=== PATIENT | male | born 1990 | race Caucasian/White ===

== ENCOUNTER 2018-11-04 15:34 | Emergency (ER) | payer OTHER, SELFPAY ==
[2018-11-04 15:35] VITALS: BP 170/94; PULSE 83; RESP 14; TEMP 36.6; O2SAT 100; BMI 25.7
--- NOTE | 2018-11-04 16:00 | EKG12_ITS ---
Test Reason : REPEAT EKG Blood Pressure : / mmHG Vent. Rate : 100 BPM Atrial Rate : 100 BPM P-R Int : 154 ms QRS Dur : 102 ms QT Int : 348 ms P-R-T Axes : 067 058 045 degrees QTc Int : 448 ms Normal sinus rhythm Incomplete right bundle branch block Borderline ECG Confirmed by ABDULAZIZ DO, JESICA ([id number]), makeup editor JEAN CARLOS SHAH ([id number]) on 11/05/2018 4:07:46 PM Referred By: HANNA Confirmed By:JESICA CINTRON MD
--- NOTE | 2018-11-04 16:00 | RAD_ITS ---
STUDY: X-RAY CHEST REASON FOR EXAM: Male, 27 years old. Chest pain, tachycardia. TECHNIQUE: Portable chest. COMPARISON: None. FINDINGS: The lungs are clear and expanded. There is no demonstrated pleural abnormality. Normal size heart. Normal mediastinum and patricia. Normal visualized pulmonary arteries. Normal visualized aortic arch and descending thoracic aorta. Normal visualized thoracic spine. Normal visualized ribs, clavicles, and shoulders. There is no demonstrated abnormality of the visualized soft tissue structures of the upper abdomen. RAD/Chest 1 View (Portable) IMPRESSION: Normal x-ray examination of the chest. Electronically Signed: Lise Kwan MD at 16:34 EDT Tel , Service support ,
[2018-11-04 16:08] LABS: Absolute Lymphocyte Count 1.75 X10^3/ul (0.83-4.51); Absolute Neutrophil Count 3.7 X10^3/uL (2.0-7.7); Basophil# 0.05 X10^3/uL; Basophil% 0.8 % (0-1); Eosinophil# 0.13 X10^3/uL; Eosinophils% 2.1 % (0-5); Hematocrit 41.6 % (40-54); Hemoglobin 14.2 g/dl (13.0-16.5); Lymphocyte # 1.75 X10^3/ul (4.0); Lymphocyte % 28.6 % (19-41); Mean Corp Hgb Conc 34.1 g/gl (32-36); Mean Corpuscular Hgb 28.7 pg (27.0-32.0); Monocyte# 0.44 X10^3/uL; Monocyte% 7.2 % (0-10); Neutrophil # 3.74 X10^3/uL (2.7-7.7); Neutrophil % 61.1 % (47-70); POSITIVE COUNT NO; POSITIVE DIFFERENTIAL NO; POSITIVE MORPHOLOGY NO; Platelet Count 236 K/mm3 (150-450); RBC Distribution Width CV 12.8 % (11.6-14.6); RBC Distribution Width SD 38.5 fl (35.1-43.9); Red Blood Count 4.95 M/mm3 (4.6-6.2); White Blood Count 6.1 K/mm3 (4.4-11.0)
[2018-11-04 16:17] LABS: D-Dimer Quantitative (DVT/PE) 0.27 FEU/ug/m (0.27-0.49)
[2018-11-04 16:27] LABS: Anion Gap 4 (5-15); BUN 12 mg/dL (7-18); BUN/Creat Ratio 12.4 RATIO (10-20); Calcium,Total 8.5 mg/dL (8.5-10.1); Chloride 106 mmol/L (98-107); Creatinine, Serum 0.97 mg/dL (0.70-1.30); EST Glomerular Filtration Rate 99 mL/min (>60); Est Glom Filt Rate - Afr Amer 119 mL/min (>60); Glucose 106 mg/dL (74-106); Magnesium 1.8 mg/dL (1.6-2.6); Potassium 3.5 mmol/L (3.5-5.1); Sodium Level 138 mmol/L (136-145); Thyroid Stim Hormone (TSH) 1.77 uIU/mL (0.358-3.74)
--- NOTE | 2018-11-04 16:36 | EKG12_ITS ---
Test Reason : CP Blood Pressure : / mmHG Vent. Rate : 089 BPM Atrial Rate : 089 BPM P-R Int : 160 ms QRS Dur : 116 ms QT Int : 346 ms P-R-T Axes : 066 035 049 degrees QTc Int : 420 ms Normal sinus rhythm with sinus arrhythmia Normal ECG Confirmed by ABDULAZIZ DO, JESICA ([id number]), managing editor JEAN CARLOS SHAH ([id number]) on 11/05/2018 4:08:01 PM Referred By: PC Confirmed By:JESICA CINTRON MD
[2018-11-04] MEDS: 0.9% Normal Saline 1,000 ML 150 ML IV (16:41)
[2018-11-04 16:42] VITALS: BP 165/93; PULSE 93; RESP 16; O2SAT 100
--- NOTE | 2018-11-04 16:51 | ED.VISSUMM ---
- ER Visit Summary Date of Service: 11/04/18 Chief Complaint: [Tachycardia and syncope] History of Present Illness: The patient is a 27 M [presents to the emergency department with an episode while golfing today around 3 PM. Patient states that he was walking while pulling a golf bag on a cart when he started feeling dizzy and vision kind of felt off. Patient teed off and went up to the green where he felt like his heart was racing so he laid down on the green and everything kind of went black and he thinks he may have passed out for a short time. Patient was golfing with his boss who ran back to the [employer] to get his car and call patient's . On arrival to the emergency department patient has no complaints. Patient states that he did have some sharp stabbing discomfort in his chest that was intermittent and lasted about a second or 2. Patient had an illness about 2 weeks ago where he had an upper respiratory illness. Patient states that he does not aware of any family history of sudden cardiac or heart rhythm abnormalities. Patient also states that his mother is adopted and he does not know her family history. Patient has a history of anxiety but states the symptoms were very different than the anxiety he used to have. Patient has traveled over the last couple of months by car to [place] [facility]. He denies any swelling in the legs out of the ordinary. He does not have any history of PE or DVT.] Physical Examination: [HEENT-PERRLA, EOMI. Cranial nerves II through XII grossly intact. TMs clear. Mucous membranes moist. No adenopathy. Cardiovascular-regular rate and rhythm without murmur or ectopy Lungs-clear to auscultation, chest wall stable without crepitus or subcu emphysema Abdomen-normoactive bowel sounds, soft, nontender, no rebound or rigidity, no peritoneal signs. Extremities-intact ?4, normal range of motion, normal pulses, atraumatic] Test Results: [EKG obtained on arrival showed a sinus rhythm with a ventricular rate of 89 bpm with no acute I segment changes. No abnormality to suggest WPW. CBC with differential is normal. Chemistries were normal. Magnesium was normal at 1.8. D-dimer was normal 0.27. Troponin was less than 0.015. TSH was normal at 1.77. Chest x-ray was normal.] Emergency Department Course and Treatment: [Patient case was discussed with cardiology on-call Dr. Lemuel Bermeo who recommended a 30-day event monitor. Patient to follow-up with his office.] Treatment Plan: 30-day event monitor and follow-up with cardiology. Patient advised to return if recurring symptoms. [Patient understands it is unclear the etiology of his tachycardia at this point. Patient understands he needs to return if he should have recurrent tachycardia or syncope.] Disposition: [Discharged home in stable condition] Impression: [Tachycardia Syncope-allergy uncertain] This note was generated with [employer] software. It may contain incorrect words, spelling, and punctuation that were not noted in review of the chart prior to signing ED Disposition - Plan for ED Patient: Referrals: Care Physician,No Primary [Primary Care Provider] -
--- NOTE | 2018-11-04 16:56 | ED.DCSUM_ITS ---
- ER Visit Summary Date of Service: 11/04/18 Chief Complaint: [Tachycardia and syncope] History of Present Illness: The patient is a 27 M [presents to the emergency department with an episode while golfing today around 3 PM. Patient states that he was walking while pulling a golf bag on a cart when he started feeling dizzy and vision kind of felt off. Patient teed off and went up to the green where he felt like his heart was racing so he laid down on the green and everything kind of went black and he thinks he may have passed out for a short time. Patient was golfing with his boss who ran back to the [employer] to get his car and call patient's . On arrival to the emergency department patient has no complaints. Patient states that he did have some sharp stabbing discomfort in his chest that was intermittent and lasted about a second or 2. Patient had an illness about 2 weeks ago where he had an upper respiratory illness. Patient states that he does not aware of any family history of sudden cardiac or heart rhythm abnormalities. Patient also states that his mother is adopted and he does not know her family history. Patient has a history of anxiety but states the symptoms were very different than the anxiety he used to have. Patient has traveled over the last couple of months by car to [place] and out of [facility] multiple times. He denies any swelling in the legs out of the ordinary. He does not have any history of PE or DVT.] Physical Examination: [HEENT-PERRLA, EOMI. Cranial nerves II through XII grossly intact. TMs clear. Mucous membranes moist. No adenopathy. Cardiovascular-regular rate and rhythm without murmur or ectopy Lungs-clear to auscultation, chest wall stable without crepitus or subcu emphysema Abdomen-normoactive bowel sounds, soft, nontender, no rebound or rigidity, no peritoneal signs. Extremities-intact ?4, normal range of motion, normal pulses, atraumatic] Test Results: [EKG obtained on arrival showed a sinus rhythm with a ventricular rate of 89 bpm with no acute I segment changes. No abnormality to suggest WPW. CBC with differential is normal. Chemistries were normal. Magnesium was normal at 1.8. D-dimer was normal 0.27. Troponin was less than 0.015. TSH was normal at 1.77. Chest x-ray was normal.] Emergency Department Course and Treatment: [Patient case was discussed with cardiology on-call Dr. Lemuel Bermeo who recommended a 30-day event monitor. Patient to follow-up with his office.] Treatment Plan: 30-day event monitor and follow-up with cardiology. Patient advised to return if recurring symptoms. [Patient understands it is unclear the etiology of his tachycardia at this point. Patient understands he needs to return if he should have recurrent tachycardia or syncope.] Disposition: [Discharged home in stable condition] Impression: [Tachycardia Syncope-allergy uncertain] This note was generated with [employer] software. It may contain incorrect words, spelling, and punctuation that were not noted in review of the chart prior to signing ED Disposition - Plan for ED Patient: Referrals: Care Physician,No Primary [Primary Care Provider] -
--- NOTE | 2018-11-04 16:56 | ED.DEP ---
ED Disposition - Plan for ED Patient: Instructions: ED Dizziness UKO, ED Fainting Unkn Cause, ED Palpitations Referrals: Care Physician,No Primary [Primary Care Provider] - Lemuel Bermeo MD [STAFF PHYSICIAN] - Additional Instructions: come to hospital tomorrow to obtain your 30 day event monitor avoid exertional activity
[2018-11-04 17:07] VITALS: BP 144/89; PULSE 85; RESP 16; TEMP 36.6; O2SAT 100
--- NOTE | 2018-11-04 17:09 | ED.RN ---
insteuctions and rx for 30 day event monitor. given verbalizes understanding
== END 2018-11-04 17:09 | disposition home or self-care (01) ==
PROVIDERS: Emergency Provider Emergency Medicine
DX: R00.0 Tachycardia, unspecified (principal); R55 Syncope and collapse
CPT/HCPCS: 71045; 80048; 83735; 84443; 84484; 85025; 85379; 93005; 96360; 99284

== ENCOUNTER → 2018-12-11 09:08 | Outpatient (CLI) | payer OTHER, SELFPAY ==
[2018-11-20 09:57] VITALS: BMI 25.1
--- NOTE | 2018-12-11 09:10 | ECHOCS_ITS ---
Reason For Study: Syncope Procedure This was a 2D Doppler, Color Flow transthoracic echocardiogram. Exam performed in department. Left Ventricle Normal size and thickness. The estimated ejection fraction is 65 %. Normal diastology for age. No regional wall motion abnormalities noted. Right Ventricle Normal size and thickness. Normal systolic function. Atria Normal left atrium. Normal right atrium. Normal atrial septum. Mitral Valve The mitral valve is structurally normal. No prolapse or stenosis seen. Trivial mitral valve insufficiency. Tricuspid Valve Normal tricuspid valve. Trivial tricuspid valve insufficiency. Unable to estimate RV systolic pressure/pulmonary artery pressure due to technically difficult study. Aortic Valve Normal aortic valve. Trisinus/trileaflet aortic valve. Pulmonic Valve Normal pulmonic valve. Trivial pulmonic valve insufficiency. Great Vessels Normal aortic root. Normal arch. Normal inferior vena cava. Inferior vena cava collapse with sniff. Pericardium/Pleural No pericardial effusion. Medication 22 gauge I.V. with prn adaptor inserted into right arm. Diluted definity 1ml given slow IV push to enhance endocardial definition. MMode/2D Measurements & Calculations LVIDd: 5.2 cm IVSd: 1.1 cm LA dimension: 3.0 cm LVIDs: 3.6 cm LVPWd: 1.3 cm RVDd: 3.6 cm FS: 30.8 % LAV(MOD-sp4): 50.2 ml LVAd ap4: 36.5 cm2 SV(MOD-sp4): 65.5 ml EDV(MOD-sp4): 124.8 ml EDV(sp4-el): 129.8 ml LVAs ap4: 23.0 cm2 ESV(MOD-sp4): 59.3 ml ESV(sp4-el): 60.8 ml EF(MOD-sp4): 52.5 % EF(sp4-el): 53.2 % SV(sp4-el): 69.1 ml LA A4 area: 19.2 cm2 RA A4 area: 17.0 cm2 Time Measurements MV dec time: 0.18 sec Doppler Measurements & Calculations MV E max rolf: 83.8 cm/sec Lat Peak E' Rolf: 18.9 cm/sec Med Peak E' Rolf: 14.1 cm/sec MV A max rolf: 51.3 cm/sec E/E' lat: 4.4 E/E' med: 5.9 MV E/A: 1.6 MV V2 max: 85.7 cm/sec MV P1/2t max rolf: 85.7 cm/sec Ao V2 max: 108.7 cm/sec MV max P.9 mmHg MV P1/2t: 52.2 msec Ao max P.7 mmHg MV V2 mean: 44.9 cm/sec Ao V2 mean: 74.8 cm/sec MV mean P.97 mmHg MV dec slope: 481.1 cm/sec2 Ao mean P.5 mmHg MV V2 VTI: 28.5 cm MVA(P1/2t): 4.2 cm2 Ao V2 VTI: 21.0 cm LV V1 max: 85.7 cm/sec PA V2 max: 79.9 cm/sec LV V1 max P.9 mmHg LV V1 mean P.5 mmHg LV V1 mean: 56.4 cm/sec LV V1 VTI: 17.4 cm Interpretation Summary The estimated ejection fraction is 65 %. Normal diastology for age. Trivial mitral valve insufficiency. Trivial tricuspid valve insufficiency. Unable to estimate RV systolic pressure/pulmonary artery pressure due to technically difficult study. The study was technically difficult. There is no comparison study available. Contrast injection was performed. Ordering Physician: Lemuel Bermeo Referring Physician: Lemuel Bermeo Performed By: Vasiliy Jolly RCS
== END ==
PROVIDERS: Referring Provider Internal Medicine Cardiovascular Disease; Visit Provider Internal Medicine Cardiovascular Disease
DX: R55 Syncope and collapse (principal); R00.0 Tachycardia, unspecified
CPT/HCPCS: 93306; Q9957; A4216; C8929

== ENCOUNTER → 2018-12-13 | Outpatient (CLI) | payer OTHER, SELFPAY ==
[2018-11-20 09:57] VITALS: BMI 25.1
--- NOTE | 2018-12-13 09:25 | STE_ITS ---
Reason For Study: Syncope Stress Results Protocol: Osmani Protocol Maximum Predicted HR: 192 bpm Target HR: 163 bpm % Maximum Predicted HR: 101 % DurationHeart Rate Stage (mm:ss) (bpm) BP Comment Baseline 71 140/88No Chest Pain Osmani Protocol Stage I 3:00 111 130/78No Chest Pain Osmani Protocol Stage II 3:00 133 148/86No Chest Pain Osmani Protocol Stage III 3:00 166 160/78No Chest Pain; Mild Dyspnea Osmani Protocol Stage IV 1:30 193 178/80No Chest Pain; Mild to Moderate Dyspnea Recovery 114 130/70No Chest Pain Stress Duration: 10:30 mm:ss Maximum Stress HR: 193 bpm METS: 13 Baseline Echocardiogram Findings The estimated ejection fraction is 65 %. Stress Echo Wall motion Data Resting WM Intermediate WM Stress WM Resting Wall Motion Wall Motion Stress No regional wall motion No regional wall motion abnormalities noted. abnormalities noted. EKG Data Normal intervals are noted. The patient exercised according to the regular Osmani protocol for a total duration of 10:30. The maximum heart rate attained was 193 beats per minute. This was 100% of maximum predicted heart rate. The patient exercised into stage 4 of the Osmani protocol. During stress, there were no ST or T wave changes noted to suggest ischemia. No clinical angina was noted. Interpretation Summary The estimated ejection fraction is 65 %. Normal, adequate, treadmill echocardiogram. Negative for ischemia by EKG and echocardiographic criteria. No anginal symptoms noted. Rare PVC noted. Average exercise capacity for age. Appropriate blood pressure response to exercise. Test terminated due to dyspnea. Final LVEF of 75%. No complications. Ordering Physician: Lemuel Bermeo Referring Physician: No Primary Care Doctor Performed By: Kelly Powers RDCS
== END | disposition home or self-care (01) ==
PROVIDERS: Referring Provider Internal Medicine Cardiovascular Disease; Visit Provider Internal Medicine Cardiovascular Disease
DX: R55 Syncope and collapse (principal); R00.0 Tachycardia, unspecified
CPT/HCPCS: 93017; 93350

== ENCOUNTER → 2019-10-03 09:29 | Outpatient (CLI) | payer OTHER, SELFPAY ==
[2019-06-03 15:33] VITALS: BMI 25.2
[2019-10-03 10:09] LABS: Absolute Lymphocyte Count 1.98 X10^3/uL (0.83-4.51); Absolute Neutrophil Count 2.2 X10^3/uL (2.0-7.7); Basophil# 0.05 X10^3/uL; Basophil% 1.1 % (0-1); Eosinophils% 2.1 % (0-5); Hematocrit 45.2 % (40-54); Hemoglobin 15.1 g/dL (13.0-16.5); Lymphocyte # 1.98 X10^3/ul (4.0); Lymphocyte % 41.9 % (19-41); Mean Corp Hgb Conc 33.4 g/dL (32-36); Mean Corpuscular Hgb 28.2 pg (27.0-32.0); Mean Corpuscular Volume 84.3 fL (80-94); Mean Platelet Vol. 11.1 fl (6.2-12.0); Monocyte# 0.38 X10^3/uL; NRBC Flagged by Analyzer 0 % (0-5); Neutrophil # 2.21 X10^3/uL (2.7-7.7); Neutrophil % 46.7 % (47-70); Platelet Count 243 K/mm3 (150-450); RBC Distribution Width CV 12.8 % (11.6-14.6); Red Blood Count 5.36 M/mm3 (4.6-6.2); White Blood Count 4.7 K/mm3 (4.4-11.0)
[2019-10-03 10:46] LABS: ALB/GLOB Ratio 1.2 RATIO (0.9-2.4); AST(SGOT) 21 U/L (15-37); Alanine Aminotransfer ALT/SGPT 33 U/L (16-61); Albumin, Serum 4.1 g/dL (3.2-5.0); Alkaline Phosphatase 73 U/L (45-117); Anion Gap 6 (5-15); BUN 12 mg/dL (7-18); BUN/Creat Ratio 14.5 RATIO (10-20); Calcium,Total 9.4 mg/dL (8.5-10.1); Chloride 108 mmol/L (98-107); Cholesterol 213 mg/dL (200); Creatinine, Serum 0.83 mg/dL (0.70-1.30); EST Glomerular Filtration Rate 117 mL/min (>60); Est Glom Filt Rate - Afr Amer 142 mL/min (>60); Globulin 3.4 g/dL (2.2-4.2); Glucose 95 mg/dL (74-106); High Density Lipoprotein 41 mg/dL; Protein, Total 7.5 g/dL (6.4-8.2); Sodium Level 141 mmol/L (136-145); Triglycerides 95 mg/dL; Very Low Density Lipoprotein 19 mg/dL (5-40)
== END ==
PROVIDERS: PCP Family Medicine; Referring Provider Family Medicine; Visit Provider Family Medicine
DX: Z00.00 Encounter for general adult medical examination without abnormal findings (principal)
CPT/HCPCS: 36415; 80053; 80061; 84443; 85025

== ENCOUNTER → 2020-10-06 08:36 | Outpatient (CLI) | payer OTHER, SELFPAY ==
[2020-01-28 09:12] VITALS: BMI 24.3
[2020-10-06 09:59] LABS: Absolute Lymphocyte Count 1.61 X10^3/uL (0.83-4.51); Absolute Neutrophil Count 2.3 X10^3/uL (2.0-7.7); Basophil# 0.05 X10^3/uL; Basophil% 1.2 % (0-1); Eosinophil# 0.12 X10^3/uL; Eosinophils% 2.8 % (0-5); Hematocrit 43.3 % (40-54); Hemoglobin 14.8 g/dL (13.0-16.5); Lymphocyte # 1.61 X10^3/ul (4.0); Lymphocyte % 37.1 % (19-41); Mean Corp Hgb Conc 34.2 g/dL (32-36); Mean Corpuscular Hgb 29.2 pg (27.0-32.0); Mean Corpuscular Volume 85.4 fL (80-94); Mean Platelet Vol. 11.4 fl (6.2-12.0); Monocyte# 0.27 X10^3/uL; Monocyte% 6.2 % (0-10); NRBC Flagged by Analyzer 0 % (0-5); Neutrophil # 2.28 X10^3/uL (2.7-7.7); Neutrophil % 52.5 % (47-70); Platelet Count 212 K/mm3 (150-450); RBC Distribution Width CV 12.5 % (11.6-14.6); RBC Distribution Width SD 37.8 fl (35.1-43.9); Red Blood Count 5.07 M/mm3 (4.6-6.2); White Blood Count 4.3 K/mm3 (4.4-11.0)
[2020-10-06 10:14] LABS: ALB/GLOB Ratio 1.2 RATIO (0.9-2.4); AST(SGOT) 145 U/L (15-37); Alanine Aminotransfer ALT/SGPT 149 U/L (16-61); Alkaline Phosphatase 65 U/L (45-117); Anion Gap 5 (5-15); BUN 14 mg/dL (7-18); BUN/Creat Ratio 16.3 RATIO (10-20); Calcium,Total 8.9 mg/dL (8.5-10.1); Chloride 106 mmol/L (98-107); Cholesterol 228 mg/dL (200); Creatinine, Serum 0.86 mg/dL (0.70-1.30); EST Glomerular Filtration Rate 111 mL/min (>60); Est Glom Filt Rate - Afr Amer 135 mL/min (>60); Globulin 3.4 g/dL (2.2-4.2); Glucose 104 mg/dL (74-106); High Density Lipoprotein 56 mg/dL; Potassium 4.2 mmol/L (3.5-5.1); Protein, Total 7.4 g/dL (6.4-8.2); Sodium Level 139 mmol/L (136-145); Triglycerides 87 mg/dL; Very Low Density Lipoprotein 17 mg/dL (5-40)
[2020-10-07 09:57] LABS: AST(SGOT) 104 U/L (15-37); Alanine Aminotransfer ALT/SGPT 98 U/L (16-61); Albumin, Serum 2.7 g/dL (3.2-5.0); Alkaline Phosphatase 42 U/L (45-117); Bilirubin, Direct 0.19 mg/dL (0.00-0.30); Globulin 2.2 g/dL (2.2-4.2); Protein, Total 4.9 g/dL (6.4-8.2)
== END ==
PROVIDERS: PCP Family Medicine; Referring Provider Family Medicine; Visit Provider Family Medicine
DX: Z00.00 Encounter for general adult medical examination without abnormal findings (principal); R79.89 Other specified abnormal findings of blood chemistry
CPT/HCPCS: 36415; 80053; 80061; 80076; 85025

== ENCOUNTER → 2020-10-09 14:43 | Outpatient (CLI) | payer OTHER, SELFPAY ==
[2020-01-28 09:12] VITALS: BMI 24.3
[2020-10-12 08:06] LABS: HEPATITIS B SURFACE AG Negative (Negative); Hepatitis A AB, Total Negative (Negative); Hepatitis A IgM Antibody Negative (Negative); Hepatitis B Core AB IgM Negative (Negative); Hepatitis B Core Ab Total Negative (Negative); Hepatitis C Ab <0.1 s/co ratio (0.0-0.9)
[2020-10-12 20:33] LABS: Hep B Surface Antibodies Non Reactive (.)
== END ==
PROVIDERS: PCP Family Medicine; Referring Provider Family Medicine; Visit Provider Family Medicine
DX: R79.89 Other specified abnormal findings of blood chemistry (principal)
CPT/HCPCS: 36415; 86704; 86705; 86706; 86708; 86709; 86803; 87340

== ENCOUNTER → 2023-10-25 | Outpatient (CLI) | payer OTHER, SELFPAY ==
--- NOTE | 2023-10-25 16:04 | RAD_ITS ---
EXAM: XR CHEST, 2 VIEWS CLINICAL INDICATION: likely left pnuemonia TECHNIQUE: Frontal and lateral views of the chest. COMPARISON: Single view chest 11/04/2018 FINDINGS: LUNGS AND PLEURAL SPACES: Unremarkable. No consolidation or edema. No pneumothorax. No effusion. HEART: Unremarkable. Cardiac silhouette not enlarged. MEDIASTINUM: Central airways and mediastinal contour are unremarkable. BONES/JOINTS: Unremarkable. No acute fracture. SOFT TISSUES: Unremarkable. RAD/Chest PA and Lateral IMPRESSION: No radiographic evidence of acute cardiopulmonary disease. Electronically Signed: Ryan Sandoval MD at 7:46 EST ,
--- OUTSIDE RECORDS SUMMARY | 2023-10-25 20:44 | XMS RPT_ITS | CCD ---
Author Name Unknown Address [address] [place] [address] Organization [facility] Care Team Providers Care City Superintendent Name Role Phone Unavailable Primary Care Provider Unavailabl e Allergies Allergy Classification Reported Allergen(s) Allergy Type Date of Onset Reaction(s) Facility (2 sources) Amoxicillin; Translations: [AMOXICILLIN] Drug Allergy 04-10-2016 [facility] Work Phone: Medications Current Medications Medication Drug Class(es) Dates Sig (Normalized) Sig (Original) [id number] 200 actuat albuterol 0.09 mg/actuat metered dose inhaler (1 source) beta2-Adrenergic Agonist Start: 10-22-2023 take 2 puff(s) by inhalation every four hours as needed for wheezing albuterol HFA (PROVENTIL HFA, VENTOLIN HFA) 90 mcg/actuation inhaler Inhale 2 Puffs as instructed every 4 hours as needed for wheezing/shortnes s of breath. 6.7 g 0 10/22/2023 Active Problems Problem Classification Problem Date Documented Da te Episodic/Chronic Other upper respiratory infections (1 source) Chronic sinusitis; Translations: [Chronic sinusitis, unspecified] 10-22-2023 Chronic Results Test Name Value Interpretation Reference Range Facil ity Vital Signs Date Time Vital Sign Value Performing Clinician Faci lity 10-22-2023 08:24-0500 Body temperature 98.91 [degF] Cristhian ADLER Work Phone: [facility] 10-22-2023 08:24-0500 Diastolic blood pressure 90 mm[Hg] Cristhian ADLER Work Phone: [facility] 10-22-2023 08:24-0500 Heart rate 114 /min Cristhian ADLER Work Phone: [facility] 10-22-2023 08:24-0500 SaO2% (BldA) [Mass fraction] 97 % Cristhian ADLER Work Phone: [facility] 10-22-2023 08:24-0500 Systolic blood pressure 126 mm[Hg] Cristhian ADLER Work Phone: [facility] Encounters Encounter Date Encounter Type Care Provider Facility Start: 10-22-2023 End: 10-22-2023 ambulatory Facility:[facility] Start: 10-22-2023 End: 10-22-2023 Patient encounter procedure Cristhian ADLER Work Phone: [facility] Plan of Treatment Date Care Activity Detail Author Start: 10-03-2029 Urine microalbumin profile DTa P,Tdap,Td Vaccine (8 - Td or Tdap) [facility] Start: 08-21-2023 Depression Assessment Depression Ass essment [facility] Start: 04-21-2023 Influenza vaccination Influenza Vacc ine (#1) [facility] Start: 2008 Hepatitis C screening Hepatitis C Sc reening [facility] Start: 2008 HIV screening HIV Screening [facility] Start: 05-28-1991 Covid-19 Vaccine (#1) Covid-19 Vacci ne (#1) [facility] Immunizations Immunization Date Immunization Notes Care Provider Fa lisandroty 10-15-2009 influenza virus vacc ine, unspecified formulation Cristhian ADLER Work Phone: [facility] Payers Date Payer Category Payer Unknown [employer] P[employer] [id number] 2023-Present [phone] [address] [place] [address] PPO [id number] 2023 Unknown [id number] Social History Date Type Detail Facility [facility]: [facility] Work Phone: Start: 04-10-2016 Alcohol intake Not Asked [facility] Start: 1990 Sex Assigned At Not on file [facility] Gender identity Not on file [facility] Progress note 10-22-2023 Note Date & Type Note Facility 10-22-2023 Note HNO ID: [id number] Author: CRISTHIAN HALEY PA Service: ? Author Type: Physician Principal Technologist Type: Progress Notes Filed: 10/22/2023 08:27 Note Text: This note was created using [email or web address]. Subjective Lisha Pedraza is a 32 year old male. HPI 32-year-old male presents for cough, head congestion, chest congestion for the past 10 days. Patient states about 10 days ago he started getting sinus congestion and cough. He states that he has had productive cough for the past 9 to 10 days. He states that he still has sinus congestion. He has loss of smell. He denies any fevers. He states he has been coughing up brownish phlegm. No history of COPD. He does have history of asthma. He states he has been using an old inhaler at home. He denies any shortness of breath or chest pain. He has not had any fevers. He did not test himself for COVID. No vomiting or diarrhea. No other complaint. No past medical history on file. No past surgical history on file. ALLERGIES Amoxicillin MEDICATIONS doxycycline (VIBRA-TABS) 100 mg tablet Take 1 tablet by mouth two times a day for 7 days. predniSONE (DELTASONE) 20 mg tablet Take 2 tablets by mouth once daily for 4 days. Take daily with food. albuterol HFA (PROVENTIL HFA, VENTOLIN HFA) 90 mcg/actuation inhaler Inhale 2 Puffs as instructed every 4 hours as needed for wheezing/shortness of breath. No family history on file. Social History Tobacco Use Smoking status: Never Review of Systems Constitutional: Negative for chills and fever. HENT: Positive for congestion, sinus pressure and sinus pain. Negative for sore throat. Respiratory: Positive for cough and wheezing. Negative for chest tightness and shortness of breath. Gastrointestinal: Negative for diarrhea and vomiting. Objective BP 126/90 Pulse 114 Temp 37.2 ?C (98.9 ?F) SpO2 97% Physical Exam Vitals and nursing note reviewed. Constitutional: General: He is not in acute distress. Appearance: Normal appearance. He is not toxic-appearing. HENT: Right Ear: Tympanic membrane and ear canal normal. Left Ear: Tympanic membrane and ear canal normal. Nose: Congestion present. Mouth/Throat: Mouth: Mucous membranes are moist. Eyes: Conjunctiva/sclera: Conjunctivae normal. Cardiovascular: Rate and Rhythm: Normal rate and regular rhythm. Pulmonary: Effort: Pulmonary effort is normal. Breath sounds: Wheezing present. No rhonchi or rales. Skin: General: Skin is warm and dry. Neurological: Mental Status: He is alert. Assessment and Plan ASSESSMENT/PLAN: 1. Sinobronchitis - ICD9: 473.9, 490, ICD10: J32.9, J40 -No XR available at time of exam. - Will begin treatment with Doxycycline -Rx for prednisone -Rx for albuterol inhaler -Advised if symptoms do not improve with antibiotic, needs to return for reevaluation and likely chest x-ray. He understands. - Supportive care with plenty of fluids, rest, and analgesia prn. Diagnosis and treatment plan were discussed and questions were answered to the patient's satisfaction. Pt acknowledged understanding of concepts and follow up plan. Specific signs and symptoms that would indicate the need for higher level of care were discussed in detail warranting prompt ER evaluation. VITOR Watkins [facility] History of Present illness Narrative 10-22-2023 Cristhian Haley PA - 10/22/2023 8:21 AM EST Note Date & Type Note Facility 10-22-2023 History of Presen t illness Narrative This note was created using [email or web address]. Subjective Lisha Pedraza is a 32 year old male. HPI 32-year-old male presents for cough, head congestion, chest congestion for the past 10 days. Patient states about 10 days ago he started getting sinus congestion and cough. He states that he has had productive cough for the past 9 to 10 days. He states that he still has sinus congestion. He has loss of smell. He denies any fevers. He states he has been coughing up brownish phlegm. No history of COPD. He does have history of asthma. He states he has been using an old inhaler at home. He denies any shortness of breath or chest pain. He has not had any fevers. He did not test himself for COVID. No vomiting or diarrhea. No other complaint. No past medical history on file. No past surgical history on file. ALLERGIES Amoxicillin MEDICATIONS doxycycline (VIBRA-TABS) 100 mg tablet Take 1 tablet by mouth two times a day for 7 days. predniSONE (DELTASONE) 20 mg tablet Take 2 tablets by mouth once daily for 4 days. Take daily with food. albuterol HFA (PROVENTIL HFA, VENTOLIN HFA) 90 mcg/actuation inhaler Inhale 2 Puffs as instructed every 4 hours as needed for wheezing/shortness of breath. No family history on file. Social History Tobacco Use Smoking status: Never Review of Systems Constitutional: Negative for chills and fever. HENT: Positive for congestion, sinus pressure and sinus pain. Negative for sore throat. Respiratory: Positive for cough and wheezing. Negative for chest tightness and shortness of breath. Gastrointestinal: Negative for diarrhea and vomiting. Objective BP 126/90 Pulse 114 Temp 37.2 C (98.9 F) SpO2 97% Physical Exam Vitals and nursing note reviewed. Constitutional: General: He is not in acute distress. Appearance: Normal appearance. He is not toxic-appearing. HENT: Right Ear: Tympanic membrane and ear canal normal. Left Ear: Tympanic membrane and ear canal normal. Nose: Congestion present. Mouth/Throat: Mouth: Mucous membranes are moist. Eyes: Conjunctiva/sclera: Conjunctivae normal. Cardiovascular: Rate and Rhythm: Normal rate and regular rhythm. Pulmonary: Effort: Pulmonary effort is normal. Breath sounds: Wheezing present. No rhonchi or rales. Skin: General: Skin is warm and dry. Neurological: Mental Status: He is alert. Assessment and Plan ASSESSMENT/PLAN: 1. Sinobronchitis - ICD9: 473.9, 490, ICD10: J32.9, J40 -No XR available at time of exam. - Will begin treatment with Doxycycline -Rx for prednisone -Rx for albuterol inhaler -Advised if symptoms do not improve with antibiotic, needs to return for reevaluation and likely chest x-ray. He understands. - Supportive care with plenty of fluids, rest, and analgesia prn. Diagnosis and treatment plan were discussed and questions were answered to the patient's satisfaction. Pt acknowledged understanding of concepts and follow up plan. Specific signs and symptoms that would indicate the need for higher level of care were discussed in detail warranting prompt ER evaluation. VITOR Watkins documented in this encounter [facility] Evaluation note Note Date & Type Note Facility documented in this encounter [facility] Summary Purpose Family History No Family History Records Found Advance Directives No Advanced Directives Records Found Additional Source Comments Source Comments (unrecognize d section and content) In the event this informatio n is protected by the Federal Confidentiality of Alcohol and Drug Abuse Patient Records regulations: The Federal rules restrict any use of the information to criminally investigate or prosecute any alcohol or drug abuse patient.[facility] Reason for Visit (unrecogniz ed section and content) (unrecognized sect ion and content) No Status Records Found INFORMATION SOURCE (unrecogn ized section and content) FOR RECORDS PERTAINING TO PATIENTS WHO ARE OR HAVE BEEN ENROLLED IN A CHEMICAL DEPENDENCY/SUBSTANCEABUSE PROGRAM, SOME INFORMATION MAY BE OMITTED. This clinical summary was aggregated from multiple sources. Caution should be exercised in using it in the provision of clinical care. This summary normalizes information from multiple sources, and as a consequence, information in this document may materially change the coding, format and clinical context of patient data. In addition, data may be omitted in some cases. CLINICAL DECISIONS SHOULD BE BASED ON THE PRIMARY CLINICAL RECORDS. [employer] provides no warranty or guarantee of the accuracy or completeness of information in this document.
== END | disposition home or self-care (01) ==
LOC: MTRAD 16:03
PROVIDERS: PCP Family Medicine; Referring Provider Family Medicine; Visit Provider Family Medicine
DX: Z03.89 Encounter for observation for other suspected diseases and conditions ruled out (principal)
CPT/HCPCS: 71046